=== PATIENT | male | born 1960 | race Caucasian/White ===

== ENCOUNTER 2018-11-09 19:59 | Inpatient (IN) | payer OTHER ==
[~2018-11-09] VITALS: Ht 170.2 cm; Wt 78.9 kg
[2018-11-09 20:16] VITALS: Ht 170.2 cm; Wt 78.9 kg
--- NOTE | 2018-11-09 21:06 | NUR ---
PT. IN ED WITH C/O CONSTIPATION AND URINARY RETENTION X4DAYS. REPORTS HE HAS HAS NOT BEEN ABLE TO COMOPLETLY EMPTY HIS BLADDER. SATES HE WAS D/C FROM [facility] YESTERDAY FOR CARDIAC WORKUP. PT. DENIES N/V/D. LAST BM WAS 4DAYS AGO. PT. AAOX4, TALKING AND RESPONDING APPROPRIATELY, BREATHING E/U. DR. ALCAZAR AT BEDSIDE FOR MSE.
[2018-11-09 21:49] LABS: BASOPHIL % 0.3 % (0-2)
[2018-11-09 21:50] LABS: PLATELET COUNT 121 x10^3mcL (130-400); RED CELL DISTRIBUTION WIDTH 19.2 % (11.5-14.5)
--- NOTE | 2018-11-09 22:07 | NUR ---
PT CALM RESTING IN BED AT THIS TIME. PT STATES LOWER ABDOMINAL PAIN 3/10 AT THIS TIME. PT ALREADY MEDICATED FOR PAIN WITH MORPHINE SULFATE 4MG IVP. NO OTHER S/SX OF DISTRESS NOTED. BREATHING E/U. DE PAZ CATHTER DRAINING VIA GRAVITY WITH 900CC OF CLEAR YELLOW URINE NOTED. ALL NEEDS MET. WILL CONTINUE TO MONITOR.
[2018-11-09 22:13] LABS: ALBUMIN 3.6 g/dL (3.4-5.0); BILIRUBIN TOTAL 1.47 mg/dL (0.20-1.00); CALCIUM 9.2 mg/dL (8.5-10.1); CARBON DIOXIDE 27.2 mmol/L (21-32); CREATININE SERUM 2.2 mg/dL (0.7-1.3); POTASSIUM SERUM 4.4 mmol/L (3.5-5.1); TOTAL PROTEIN, SERUM 7.5 g/dL (6.4-8.2)
--- NOTE | 2018-11-09 22:25 | NUR ---
AFTER RECEIVING MORPHINE SULFATE IVP, PT STATES RELIEF OF PAIN 0/10. B/P 101/71 (82). RR 16. HR 84.
--- NOTE | 2018-11-09 22:54 | NUR ---
PT LEFT VIA GURNEY FOR CT OF ABD/PELVIS.
--- NOTE | 2018-11-09 23:11 | NUR ---
PT BACK FROM CT OF ABD/PELVIS. NO DISTRESS NOTED. PT STATES NO PAIN AT THIS TIME.
[2018-11-09] MEDS ORDERED: PRA40 PO (23:54)
[2018-11-10] MEDS ORDERED: GLUCOPHAGE XR500 MG (00:07)
[2018-11-10] MEDS ORDERED: CARVEDILOL3.125 M1 (00:07)
[2018-11-10] MEDS ORDERED: RANEXA500 M2 (00:08)
[2018-11-10] MEDS ORDERED: SPIRONOLACTONE (00:08)
[2018-11-10] MEDS ORDERED: ASPIR 8181 MG (00:09)
[2018-11-10] MEDS ORDERED: HUMULIN R100 U/1 M1 (00:10)
[2018-11-10] MEDS ORDERED: GLUCOTROL10 MG (00:11)
--- NOTE | 2018-11-10 01:47 | NUR ---
PT COMFORTABLE RESTING ON GUERNEY WITH NO S/SX OF DISTRESS NOTED. AAOX4. BREATHING E/U. PT STATES NO PAIN AT THIS TIME. CALL LIGHT WITHIN REACH.
--- NOTE | 2018-11-10 01:56 | NUR ---
EMPTIED PT'S DE PAZ CATHTER BAG WITH 1630CC OF CLEAR YELLOW URINE NOTED.
[2018-11-10 02:28] LABS: CHOLESTEROL/HDL RATIO 3.1; MAGNESIUM 2.4 mg/dL (1.8-2.4); PHOSPHOROUS 3.7 mg/dL (2.5-4.9)
--- NOTE | 2018-11-10 02:28 | NUR ---
REPORT GIVEN TO CAMILLE CURIEL FOR FURTHER CARE OF PATIENT. ALL QUESTIONS AND CONCERNS ADDRESSED.
[2018-11-10 02:37] LABS: T3 TOTAL 0.68 ng/mL
[2018-11-10 02:40] LABS: FREE T4 1.14 ng/dL (0.76-1.46); FREE THYROXINE INDEX 2.7 ug/dL (1.4-4.5); T4(THYROXINE) 7.6 ug/dL (4.7-13.3)
--- NOTE | 2018-11-10 02:51 | NUR ---
PT ADMITTED TO TELE FLOOR 256B VIA GUERNEY ACCOMPANIED BY 2 NURSES. NO SIGNS OF DISTRESS NOTED. PT HOOKED UP TO CHECKER LOADER WHILE TRANSFERRING. RN RECEIVED PT IN UNIT AND WILL ASSUME CARE.
[2018-11-10 03:33] VITALS: BP 102/70
[2018-11-10 04:01] LABS: UA SPECIFIC GRAVITY 1.015 (1.005-1.035); microscopic required? YES; urine erythrocyte 1+ (NEGATIVE)
--- NOTE | 2018-11-10 04:07 | NUR ---
RECIEVED PT FROM ED. PT IN NO DISTRESS. PT AMBULATED FROM GURNEY TO BED WITH A SLOW SLIGHTLY UNSTEADY GAIT. A/O x4. ON TELE #17, SR WITH A BUNDLE. DENIES ANY CHEST PAIN. EDEMA NOTED ON BLE. PT C/O UNABLE TO HAVE A BM FOR 4 DAYS. HE USED SUPPOSITORY AT HOME AND IT DIDN'T HELP. HE ALSO STATED THAT HE WAS UNABLED TO VOID AT HOME FOR A DAY AND ONLY MANAGED TO DRIBBLE URINE, SO DE PAZ WAS INSERTED IN ED. YELLOW URINE NOTED IN BAG. BAG BELOW BLADDER. BED AT LOWEST SETTING. CALL LIGHT WITHIN REACH. WILL CONITNUE TO [facility].
[2018-11-10 04:27] LABS: AMPHETAMINE QUAL UR NONE DETECTED (See below)
[2018-11-10 06:07] VITALS: BP 100/65
[2018-11-10 06:24] LABS: BASOPHIL % 0.4 % (0-2)
[2018-11-10 06:40] LABS: CALCIUM 9.6 mg/dL (8.5-10.1); CARBON DIOXIDE 29.1 mmol/L (21-32); CREATININE SERUM 2.1 mg/dL (0.7-1.3); POTASSIUM SERUM 5.3 mmol/L (3.5-5.1)
[2018-11-10 06:42] LABS: PLATELET COUNT 108 x10^3mcL (130-400); RED CELL DISTRIBUTION WIDTH 19.5 % (11.5-14.5)
--- NOTE | 2018-11-10 06:44 | NUR ---
PT IS RESTING IN BED WITH BOTH EYES CLOSED. BREATHING EVEN AND UNLABORED. NO SIGN OF DISTRESS NOTED. NO BM YET. BED IS AT LOWEST SETTING. CALL LIGHT WITHIN REACH. WILL ENDORSE TO AM NURSE.
--- NOTE | 2018-11-10 08:02 | NUR ---
RECEIVED AWAKE, ALERT AND ORIENTED. NO RESP. DISTRESS NOTED. NO C/O PAIN OR DISCOMFORT. VS WNL. HL PATENT. CALL LIGHT WITHIN REACH. WILL CONTINUE WITH PLAN OF CARE.
[2018-11-10 08:39] VITALS: BP 97/64
--- NOTE | 2018-11-10 10:17 | NUR ---
DR. HERNANDEZ MADE AWARE OF ELEVETED TROP 0.187
[2018-11-10 12:02] VITALS: BP 103/68
--- NOTE | 2018-11-10 14:59 | NUR ---
THORACENTESIS COMPLETED, 800ML OUT. PT TOLERATED WELL.
--- NOTE | 2018-11-10 15:22 | NUR ---
PT REPORTED FEELING BETTER AFTER THORA, O2 SATS 99% IN RA. NO ACUTE DISTRESS NOTED. BP 93/64 AT THIS TIME.
--- NOTE | 2018-11-10 15:55 | NUR ---
Initial Nutrition Assessment: Eben Jackson Dx: Renal Failure, Urinary Retention PMHx: Defibrillator in 2011, [place] s/p CABG in 2010, CHF, DM, low blood pressure, asthma and HLD PSHx: CABG, Cataract Removal Labs: Na 131L, K 5.3H, Cl 94L, Glucos. 172H, BUN 85.0H, Creat 2.1H, A1c 10H, Hgb 9.5L, Hct 29L Meds: Colace, Dextrose 50% water, Humulin, Lasix, Lipitor, Precision pcx blood glucose strips, Veltassa, Zofran Diet: CCHO PO Intake: CCHO Breakfast-90% Ht: 170.18cm, 67in Wt: 78.925kg, 173# BMI: 27.3kg/m2 (Overweight) Bed scale: 176# IBW: 148#, 67.27kg %IBW: 116% UBW: 170-175# Age: 58/M Food Allergies: NKFA Skin: Scattered darken discoloration noted on bue in multiple stages of healing. Justin: 20 Edema: +3 edema on RLE, +2 edema on lle and scutum edema GI: Last BM: None noted. Pt Visit: Patient was alert and answered all questions. Pt states that he takes 20 units of insulin in the morning and checks his blood sugar usually 2x/day. He states that in the mornings is readings are usually 120-145. He says he tries not to add salt to his meals at home and tries to eat small amounts of sugar. He said he has had diabetes for over 20 years now. Patient stated there was carcamo in his breakfast so he didn't eat it because he is also trying to watch his sodium intake. He says he does not add salt to his meals. The pt was happy to receive information regarding carbohydrate counting. Per H&P: Patient is a 58 year old male with PMH of defibrillator in 2011, [place] s/p CABG in 2010, CHF, DM, low blood pressure, asthma, and HLD presents with constipation for 4 days and urinary retention for 1 day. Patient states when he urinates it only dribbles. Patient reports being hospitalized at [facility] 5 days ago for fluid overload and hyperkalemia. Patient was diagnosed with CHF there. Patient reports getting an ECHO there. Patient admits to orthopnea, paroxysmal nocturnal dypsnea, chills. Patient denies fever, headache, shortness of breath, chest pain, abdominal pain, nausea or vomiting. Patient states he does not have any renal issue. Patient ambulates with cane at baseline and not on home oxygen. Patient does not remember the dosage of his home med. Problem with: N: None V: None D: None C: Yes for 4 days Problems with: Chewing: None Swallowing: None Current appetite: Fair Recent wt change: None %wt change: None Vitamin/Supplement use: None Special diet at home: Tries not to eat salt Physical activity: None Education: Discussed NCM Type 2 Diabetes packet with the pt. Went over the portion sizes and showed him a sample menu for a day. Let him know that once he feels better and if it is ok with his doctor to try and walk or do some physical activity to help with his blood sugar as well. Estimated Nutritional Needs Based on actual body weight 78kg Energy: 1500-1900kcal/d (20-25kcal/kg) (Based on BMI >25) Protein: 62-78g/d (0.8-1.2g/kg) (For maintenance) Fluid: 1560-1950ml/d (1 ml/kcal) or per doctor Nutrition Diagnosis 1. Altered nutrition-related laboratory values r/t history of diabetes aeb A1C of 10. Intervention 1. Recommend CCHO with 2g Na diet 2. NCM MNT Type 2 Diabetes education provided. Monitor/Evaluate Goal: PO intake at least 75% of estimated needs Monitor: PO intake, Labs, GI function LR F/U 11/13-11/15
--- NOTE | 2018-11-10 15:56 | NUR ---
Intervention 1. Recommend CCHO with 2g Na diet 2. NCM MNT Type 2 Diabetes education provided.
[2018-11-10 16:42] VITALS: BP 96/58
--- NOTE | 2018-11-10 16:56 | NUR ---
DR. ROGERS NOTIFIED OF ELEVETED TROP.0.200
--- NOTE | 2018-11-10 18:48 | NUR ---
REMAINS IN NO ACUTE DISTRESS. AWAKE AND ALERT. VS REMAINS WNL. HL PATENT. NO C/O PAIN OR DISCOMFORT AT THIS TIME. CALL LIGHT WITHIN REACH. WILL BE ENDORSED TO INCOMING SHIFT.
--- NOTE | 2018-11-10 20:09 | NUR ---
PT CURRENTLY RESTING IN BED, NO ACUTE DISTRESS. A/O X4. TELE #17 SHOWING SINUS RHYTHM, DENIES CHEST PAIN. PULSES PALPABLE IN ALL EXTREMITIES, BLE EDEMA +2 NOTED. LUNG SOUNDS CTA BILATERALLY, DENIES SOB. BOWEL SOUNDS ACTIVE, LAST BM 11/10/18. DE PAZ CATHETER IN PLACE, YELLOW URINE NOTED. SCROTAL EDEMA NOTED. GENERALIZED WEAKNESS. BUE SCATTERED ECCHYMOSIS, CARDING UTILITY TENDER. BLE DARK DISCOLORATION NOTED. IV PATENT AND INTACT. BED IN LOWEST POSITION, SIDE RAILS UP X2, CALL LIGHT WITHIN REACH. WILL CONTINUE TO MONITOR.
[2018-11-10 21:22] VITALS: BP 92/59
--- NOTE | 2018-11-11 02:00 | NUR ---
PT STATES HE FEELS LIKE HIS BLOOD SUGAR IS LOW, C/O DIZZINESS. CURRENT BLOOD GLUCOSE 98. PT REQUESTING SNACK, STATES FEELING BETTER AFTER EATING. WILL CONTINUE TO MONITOR.
[2018-11-11 05:19] VITALS: BP 93/54
[2018-11-11 06:15] LABS: BASOPHIL % 0.1 % (0-2)
--- NOTE | 2018-11-11 06:23 | NUR ---
PT SLEPT PERIODICALLY THROUGHOUT NIGHT, NO ACUTE DISTRESS. ALL NEEDS MET AND ATTENDED TO. NO SIGNIFICANT CHANGES. IV PATENT AND INTACT. BED IN LOWEST POSITION, SIDE RAILS UP X2, CALL LIGHT WITHIN REACH. WILL ENDORSE CARE TO ONCOMING NURSE.
[2018-11-11 07:08] LABS: CALCIUM 9.2 mg/dL (8.5-10.1); CREATININE SERUM 1.6 mg/dL (0.7-1.3); MAGNESIUM 2.4 mg/dL (1.8-2.4); PHOSPHOROUS 3.4 mg/dL (2.5-4.9); POTASSIUM SERUM 4.3 mmol/L (3.5-5.1)
[2018-11-11 07:33] LABS: PLATELET COUNT 96 x10^3mcL (130-400); RED CELL DISTRIBUTION WIDTH 19.2 % (11.5-14.5)
--- NOTE | 2018-11-11 07:38 | NUR ---
SLEEPING BUT AROUSABLE. IN NO RESP. DISTRESS. VS STABLE. NO C/O PAIN OR DISCOMFORT. DE PAZ CATH IN PLACE DRAINING CLEAR YELLOW URINE TO GRAVITY.HL PATENT. CALL LIGHT WITHIN REACH. WILL CONTINUE WITH PLAN OF CARE.
[2018-11-11 08:17] VITALS: BP 99/63
[2018-11-11 12:19] VITALS: BP 111/72
[2018-11-11 16:32] VITALS: BP 100/57
--- NOTE | 2018-11-11 18:55 | NUR ---
REMAINS IN NO DISTRESS, AWAKE AND ALERT. NO CHANGES IN VS. NO C/O PAIN OR DISCOMFORT. HL PATENT. CALL LIGHT WITHIN REACH. WILL BE ENDORSED TO INCOMING SHIFT.
--- NOTE | 2018-11-11 19:26 | NUR ---
PT CURRENTLY RESTING IN BED, NO ACUTE DISTRESS. A/O X4. NO TELE, MED/SURG. DENIES CHEST PAIN. DEFIBULATOR NOTED TO LEFT CHEST. PULSES PALPABLE IN ALL EXTREMITIES, BLE EDEMA +2 NOTED. LUNG SOUNDS CTA BILATERALLY, DENIES SOB. BOWEL SOUNDS ACTIVE, LAST BM 11/11/18. DE PAZ CATHETER IN PLACE, YELLOW URINE NOTED. SCROTAL EDEMA NOTED. MILD GENERALIZED WEAKNESS, AMBULATORY. BLE DARK DISCOLORATION AND BUE ECCHYMOSIS NOTED. IV PATENT AND INTACT. BED IN LOWEST POSITION, SIDE RAILS UP X2, CALL LIGHT WITHIN REACH. WILL CONTINUE TO MONITOR.
[2018-11-11 20:46] VITALS: BP 101/67
--- NOTE | 2018-11-12 00:40 | NUR ---
PT CURRENTLY RESTING IN BED, NO ACUTE DISTRESS. WILL CONTINUE TO MONITOR.
[2018-11-12 04:41] VITALS: BP 94/58
[2018-11-12 06:30] LABS: CALCIUM 8.7 mg/dL (8.5-10.1); CARBON DIOXIDE 31.2 mmol/L (21-32); CREATININE SERUM 1.3 mg/dL (0.7-1.3); MAGNESIUM 2.1 mg/dL (1.8-2.4); PHOSPHOROUS 2.9 mg/dL (2.5-4.9)
[2018-11-12 07:30] LABS: BASOPHIL % 0.3 % (0-2); PLATELET COUNT 83 x10^3mcL (130-400); RED CELL DISTRIBUTION WIDTH 19.4 % (11.5-14.5)
--- NOTE | 2018-11-12 07:33 | NUR ---
RECEIVED AWAKE, ALERT AND ORIENTED. NO RESP. DISTRESS NOTED. NO C/O PAIN OR DISCOMFORT. HL PATENT. CALL LIGHT WITHIN REACH. WILL CONTINUE WITH PLAN OF CARE.
[2018-11-12 09:14] VITALS: BP 97/62
--- NOTE | 2018-11-12 10:56 | NUR ---
BLADDER TRAINING INITIATED, PT TOLERATING WELL, NO URGE TO VOID YET.DE PAZ CATH CLAMPED AT THIS TIME. WILL CONTINUE TO MONITOR.
--- NOTE | 2018-11-12 12:21 | NUR ---
PT REPORTED URGE TO VOID, DE PAZ CATH UNCLAMPED AND DRAINING. WILL CONT. WITH BLADDER TRAINING PER ORDER.
[2018-11-12 13:10] VITALS: BP 97/62
--- NOTE | 2018-11-12 13:41 | NUR ---
DE PAZ CATH REMOVED AND PT TOLERATED WELL. DUE TO VOID AND AWARE.
[2018-11-12] MEDS ORDERED: FLOMAX0.4 MG PO (13:43)
--- NOTE | 2018-11-12 14:57 | NUR ---
PT IS YET TO VOID. PO FLUID ENCOURAGED. DC PENDING WAITING FOR PT TO VOID.
--- NOTE | 2018-11-12 16:40 | NUR ---
PT VOIDED X2, ONE WITH 200ML OUTPUT AND SECOND WITH APPROX, 150ML. NO HEMATURIA NOTED, PT DENIES DYSURIA. WILL BE DC'D HOME THIS PM. PT REPORTED HE WILL HAVE RIDE HOME AFTER 6PM.RESTING IN NO DISTRESS, DENIES ANY DISCOMFORT.
[2018-11-12 16:50] VITALS: BP 95/64
--- NOTE | 2018-11-12 18:06 | NUR ---
PT DC'D HOME IN NO DISTRESS, AWAKE AND ALERT. NO C/O PAIN OR DISCOMFORT. VS WNL. HL REMOVED AND SITE CLEAR. DC INSTRUCTIONS REVIEWED WITH PT AND RX GIVEN. PERSONAL BELONGINGS TAKEN HOME.
[2018-11-12] MEDS ORDERED: LASIX80 MG PO (23:54)
--- NOTE | 2018-11-13 07:37 | NUR ---
ECHOCARDIOGRAM NOT DONE-DISCHARGED
== END 2018-11-12 18:05 | disposition home or self-care (01) | DRG 469 ==
LOC: ED 19:59 → DU 11-10 01:59 → MU 11-11 14:49
PROVIDERS: Emergency Medicine; ADMIT Internal Medicine
DX: N17.0 Acute kidney failure with tubular necrosis (principal); J90 Pleural effusion, not elsewhere classified; R18.8 Other ascites; I95.9 Hypotension, unspecified; E11.65 Type 2 diabetes mellitus with hyperglycemia; E87.1 Hypo-osmolality and hyponatremia; K59.00 Constipation, unspecified; E78.5 Hyperlipidemia, unspecified; D64.9 Anemia, unspecified; R74.0 Nonspecific elevation of levels of transaminase and lactic acid dehydrogenase [LDH]; E02 Subclinical iodine-deficiency hypothyroidism; R33.9 Retention of urine, unspecified; I25.2 Old myocardial infarction; Z79.4 Long term (current) use of insulin; Z68.28 Body mass index [BMI] 28.0-28.9, adult; Z95.1 Presence of aortocoronary bypass graft; Z79.84 Long term (current) use of oral hypoglycemic drugs; Z95.810 Presence of automatic (implantable) cardiac defibrillator
CPT/HCPCS: 82962; 83880; 84439; C1758; J1815; J1940; J2270; J2405; Q0092

== ENCOUNTER 2018-11-15 10:08 | Emergency (ER) | payer OTHER ==
[~2018-11-15] VITALS: Ht 170.2 cm; Wt 75.3 kg
[~2018-11-15 10:08] MED LIST: ASPIR 8181 MG; CARVEDILOL3.125 M1; FLOMAX0.4 MG PO; GLUCOPHAGE XR500 MG; GLUCOTROL10 MG; HUMULIN R100 U/1 M1; LASIX80 MG PO; PRA40 PO; RANEXA500 M2; SPIRONOLACTONE
[2018-11-15 10:27] VITALS: Ht 170.2 cm; Wt 75.3 kg
[2018-11-15 11:36] VITALS: BP 104/93
== END 2018-11-15 11:37 | disposition home or self-care (01) ==
LOC: ED 10:08
DX: I83.892 Varicose veins of left lower extremity with other complications (principal); I25.810 Atherosclerosis of coronary artery bypass graft(s) without angina pectoris; S60.222A Contusion of left hand, initial encounter; S60.221A Contusion of right hand, initial encounter; E11.9 Type 2 diabetes mellitus without complications; E78.00 Pure hypercholesterolemia, unspecified; I11.0 Hypertensive heart disease with heart failure; I50.9 Heart failure, unspecified; Z88.0 Allergy status to penicillin; Z95.810 Presence of automatic (implantable) cardiac defibrillator; X58.XXXA Exposure to other specified factors, initial encounter; Y93.89 Activity, other specified; Y92.89 Other specified places as the place of occurrence of the external cause; Y99.8 Other external cause status